=== PATIENT | female | born 1990 | race African-American/Black ===

== ENCOUNTER 2022-01-23 14:24 | Emergency (ER) | payer OTHER ==
[~2022-01-23] VITALS: Ht 162.6 cm; Wt 51.7 kg
--- NOTE | 2022-01-23 15:14 | NUR ---
pt refuses urine test , made aware.
--- NOTE | 2022-01-23 17:20 | NUR ---
Nelsy blackwell in [facility] - 01/23/22 at 1849 by JEET CALLED [facility] AND SET UP BLS TRANSPORT ETA [id number]
--- NOTE | 2022-01-23 18:49 | NUR ---
CALLED [facility] AND SET UP BLS TRANSPORT ETA 1929
--- NOTE | 2022-01-23 19:16 | NUR ---
PT PICKED UP BY TRANSPORT TEAM AND TRANSFERRED TO [facility].
[2022-01-23 19:18] VITALS: BP 98/62
== END 2022-01-23 19:16 ==
LOC: ER 14:26
DX: O26.891 Other specified pregnancy related conditions, first trimester (principal); B82.0 Intestinal helminthiasis, unspecified; Z3A.08 8 weeks gestation of pregnancy; I95.9 Hypotension, unspecified; J45.909 Unspecified asthma, uncomplicated; Z87.39 Personal history of other diseases of the musculoskeletal system and connective tissue
CPT/HCPCS: 36415; 76856-TC; 84702-TC

== ENCOUNTER 2024-12-18 16:34 | Emergency (ER) | payer MEDICAID, OTHER ==
[~2024-12-18] VITALS: Ht 162.6 cm; Wt 57.2 kg
[2024-12-18] MEDS: IV NS 0.9% 1,000 ML BAG IV ONE (18:04)
[2024-12-18 22:30] VITALS: BP 129/70; TEMP 99; O2SAT 98
== END 2024-12-18 22:30 | disposition home or self-care (01) ==
LOC: ER 16:37
DX: S09.90XA Unspecified injury of head, initial encounter (principal); S16.1XXA Strain of muscle, fascia and tendon at neck level, initial encounter; M25.561 Pain in right knee; M25.562 Pain in left knee; J45.909 Unspecified asthma, uncomplicated; Z60.2 Problems related to living alone; W05.0XXA Fall from non-moving wheelchair, initial encounter; Y93.89 Activity, other specified; Y92.89 Other specified places as the place of occurrence of the external cause; Y99.8 Other external cause status
CPT/HCPCS: 99285; 72125; 96360; 71045; 73564 ×2; 70450; J7030